=== PATIENT | female | born 1995 | race Caucasian/White ===

== ENCOUNTER 2016-09-06 18:35 | Inpatient (IN) | payer BC ==
[2016-09-06] MEDS ORDERED: Sodium Chloride 0.9% 10 ML Syringe FLUSH PRN (22:59)
[2016-09-06] MEDS ORDERED: Oxytocin/Lactated Ringers 10 UNIT/1,000 ML BAG IV SCH (23:00)
[2016-09-06] MEDS ORDERED: diphenhydrAMINE 50 MG/ML SDV IVPUSH PRN (23:07)
[2016-09-06] MEDS ORDERED: fentaNYL 100 MCG/2 ML SDV EPIDUR PRN (23:07)
[2016-09-06] MEDS ORDERED: ePHEDrine 50 MG/ML SDV IVPUSH PRN (23:07)
[2016-09-06] MEDS ORDERED: Bupivacaine/fentaNYL/NS 100 ML Bag EPIDUR SCH (23:15)
[2016-09-06] MEDS: Lactated Ringers 1,000 ML IV SCH (23:32)
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
[2016-09-07] MEDS: Lactated Ringers 1,000 ML IV SCH (00:16)
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
--- NOTE | 2016-09-07 03:13 | PCM.DEL ---
L & D Note - General Info Date of Service: 09/07/16 - Delivery Note Labor: Spontaneous Delivery Outcome: Livebirth Delivery Method: Spontaneous Vaginal Delivery Delivery Mode: Spontaneous Presentation: Right Occiput Anterior ([place]) Nuchal Cord: Present, Reduced Anesthesia Type: Epidural Amniotic Fluid Description: Meconium Stained Episiotomy Type: None Laceration: 2nd Degree, Perineal Suture type: Vicryl Suture size: 2-0 Placenta: Intact, Spontaneous Cord: 3 Vessels Estimated Blood Loss: 250 Resuscitation Needed: Yes [place]: Suctioned, Stimulated, Warmed, [place] Used, Warmer Used Score 1 min: 9 Score 5 min: 9 Delivery Comments (Free Text/Narrative):: Patient found to be complete and began pushing. With maternal pushing effort head delivered from an REGINA presentation. Nuchal cord present and reduced. With gentle downward traction the shoulders and body delivered. Infant placed on maternal abdomen. Cord clamped and cut. Cord blood obtained. Placenta allowed time to separate and then expelled. Inspection of the perineum showed a 2nd degree laceration repaired with a 2-0 vicryl in the typical fashion. - Patient Data Vitals - most recent: Last Vital Signs Temp 36.7 C 09/07/16 00:09 Pulse 98 09/07/16 00:09 Resp 18 09/07/16 00:09 BP 112/67 09/07/16 00:09 Pulse Ox 99 09/07/16 00:09 Weight - most recent: 64.41 kg Lab Results last 24 hrs: Laboratory Results - last 24 hr 09/06/16 09/06/16 Range/Units 23:10 23:10 WBC 17.11 H (3.98-10.04) K/mm3 RBC 4.24 (3.98-5.22) M/mm3 Hgb 13.2 (11.2-15.7) gm/L Hct 38.6 (34.1-44.9) % MCV 91.0 (79.4-94.8) fl MCH 31.1 (25.6-32.2) pg MCHC 34.2 (32.2-35.5) g/dl RDW Std Deviation 43.6 (36.4-46.3) fL Plt Count 320 (182-369) K/mm3 MPV 11.4 (9.4-12.3) fl Neut % (Auto) 70.7 (34.0-71.1) % Lymph % (Auto) 19.0 L (19.3-51.7) % [place] % (Auto) 8.2 (4.7-12.5) % Eos % (Auto) 0.9 (0.7-5.8) Baso % (Auto) 0.5 (0.1-1.2) % Neut # (Auto) 12.10 H (1.56-6.13) K/mm3 Lymph # (Auto) 3.25 (1.18-3.74) K/mm3 [place] # (Auto) 1.41 H (0.24-0.36) K/mm3 Eos # (Auto) 0.15 (0.04-0.36) K/mm3 Baso # (Auto) 0.08 (0.01-0.08) K/mm3 Manual Slide Review Normal smear Blood Type O POSITIVE Gel Antibody Screen Negative Med Orders - Current: Current Medications Diphenhydramine HCl (Benadryl) 25 mg IVPUSH Q6H PRN PRN Reason: Itching Ephedrine Sulfate (Ephedrine Sulfate) 5 mg IVPUSH ASDIRECTED PRN PRN Reason: HYPOTENTSION Fentanyl (Sublimaze) 100 mcg EPIDUR Q3H PRN PRN Reason: PAIN Last Admin: 09/06/16 23:58 Dose: 100 mcg Fentanyl/Bupivacaine HCl (Fentanyl/Bupivacaine/Ns 2 Mcg-0.125% 100 Ml) 100 ml EPIDUR ASDIRECTED PAT Last Admin: 09/06/16 23:58 Dose: 100 ml Lactated Ringer's (Ringers, Lactated) 1,000 mls @ 100 mls/hr IV ASDIRECTED PAT Last Admin: 09/07/16 00:16 Dose: 999 mls/hr Oxytocin/Lactated Ringer's (Pitocin In Lr 10 Units/1,000 Ml) 10 unit in 1,000 mls @ 500 mls/hr IV .CONTINUOUS PAT Last Admin: 09/07/16 03:01 Dose: 500 mls/hr Sodium Chloride (Saline Flush) 10 ml FLUSH ASDIRECTED PRN PRN Reason: Keep Vein Open - Problem List & Annotations (1) Vaginal delivery SNOMED Code(s): 624939122 Code(s): O80 - ENCOUNTER FOR FULL-TERM UNCOMPLICATED DELIVERY Status: Acute Current Visit: Yes (2) 37 weeks gestation of SNOMED Code(s): 35004243 Code(s): Z3A.37 - 37 WEEKS GESTATION OF Status: Acute Current Visit: Yes (3) Anxiety SNOMED Code(s): 53593202 Code(s): F41.9 - ANXIETY DISORDER, UNSPECIFIED Status: Acute Current Visit: Yes (4) Asthma affecting , antepartum SNOMED Code(s): 079040696 Code(s): O99.519 - DISEASES OF THE RESP SYS COMP , UNSP TRIMESTER; J45.909 - UNSPECIFIED ASTHMA, UNCOMPLICATED Status: Acute Current Visit: Yes (5) Normal labor SNOMED Code(s): 92031604 Code(s): O80 - ENCOUNTER FOR FULL-TERM UNCOMPLICATED DELIVERY; Z37.9 - OUTCOME OF DELIVERY, UNSPECIFIED Status: Acute Priority: High Current Visit: No Annotation/Comment:: Small fetus, but patient is small as well. - Problem List Review Problem List Initiated/Reviewed/Updated: Yes - My Orders Last 24 Hours: My Active Orders 09/06/16 22:59 Activity as Tolerated [RC] PFP Communication Order [RC] ASDIRECTED Notify Provider [RC] PFP Notify Provider [RC] PRN Vital Signs [RC] PER UNIT ROUTINE Sodium Chloride 0.9% [Saline Flush] 10 ml FLUSH ASDIRECTED PRN Electronic Heart Tones Ext w TOCO [WOMSER] Routine Electronic Heart Tones Internal [WOMSER] Per Unit Routine Peripheral IV Insertion Adult [OM.PC] Routine Resuscitation Status Routine 09/06/16 23:00 Patient Status [ADT] Routine Lactated Ringers [Ringers, Lactated] 1,000 ml IV ASDIRECTED Oxytocin/Lactated Ringers [Pitocin in LR 10 Units/1,000 ML] 10 unit in 1,000 ml IV .CONTINUOUS 09/06/16 23:01 Heart Tones [RC] ASDIRECTED Peripheral IV Care [RC] . DIRECTED - Assessment Assessment:: 21 y/o G2 now P2002 PPD#0 from at 37 2/7 wks - Plan Plan:: * Routine cares * Encourage breast feeding * During contacted by [facility] due to positive urine drug screen for THC and benzodiazepines. UDS in clinic negative for those substances, but preliminary positive for amphetamines. Confirmatory negative. Have made Pediatric team aware in case additional testing desired * Home in 1-2 days Anxiety * Continue home Prozac Asthma * Continue home Symbicort
[2016-09-07] MEDS ORDERED: Benzocaine/Menthol 20%-0.5% Spray 56 GM Canister TOP PRN (04:06)
[2016-09-07] MEDS ORDERED: Ibuprofen 600 MG Tab PO PRN (04:06)
[2016-09-07] MEDS ORDERED: Lanolin 100% Cream 7 GM Tube TOP PRN (04:06)
[2016-09-07] MEDS ORDERED: Docusate Sodium 100 MG Cap PO PRN (04:06)
[2016-09-07] MEDS ORDERED: Witch Hazel Medicated Pads 100/Jar TOP PRN (04:06)
[2016-09-07] MEDS ORDERED: Acetaminophen 325 MG Tab PO PRN (04:06)
[2016-09-07] MEDS ORDERED: Budesonide/Formoterol 160-4.5 MCG/Puff 6 GM Inhaler INH SCH (09:00)
[2016-09-07] MEDS: Formoterol/Mometasone 200-5 MCG 8.8 GM Inhaler IH SCH (09:14)
--- NOTE | 2016-09-07 09:17 | PCM48HPAN ---
Post Anesthesia Note - EVALUATION WITHIN 48HRS OF ANESTHETIC Vital Signs in Normal Range: Yes Patient Participated in Evaluation: Yes Respiratory Function Stable: Yes Airway Patent: Yes Cardiovascular Function Stable: Yes Hydration Status Stable: Yes Pain Control Satisfactory: Yes Nausea and Vomiting Control Satisfactory: Yes Mental Status Recovered: Yes - COMMENTS/OBSERVATIONS Free Text/Narrative:: Patient denies any headaches, residual numbness or tingling in her LE, or back pain.
[2016-09-07] MEDS: Levothyroxine 25 MCG Tab PO SCH (11:52)
[2016-09-07] MEDS: FLUoxetine 20 MG Cap PO SCH (11:52)
[2016-09-07] MEDS ORDERED: Bupivacaine 0.25% 10 ML SDV ONE (22:22)
--- NOTE | 2016-09-08 08:18 | PCM.DCSUM1 ---
Discharge Summary - Hospital Course Brief History: Admitted in labor. - Discharge Data Discharge Date: 09/08/16 Discharge Disposition: Home, Self-Care 01 Condition: Good - Patient Instructions Diet: Usual Diet as Tolerated Activity: No Strenuous Activities Driving: May Drive Today Showering/Bathing: May Shower Wound/Incision Care: Keep Operative Site/Wound Site Clean and Dry Notify Provider of: Fever, Increased Pain, Swelling and Redness, Drainage, Nausea and/or Vomiting - Discharge Plan Home Medications: Home Meds Vit No.130/Iron/FA [ Tablet] 1 each PO DAILY 08/30/13 [History] Budesonide/Formoterol Fumarate [Symbicort 160-4.5 Mcg Inhaler] 2 puff IH DAILY 09/07/16 [History] FLUoxetine [PROzac] 60 mg PO DAILY 09/07/16 [History] Levalbuterol Tartrate [Xopenex HFA] 3 puff PO ASDIRECTED PRN 09/07/16 [History] Levothyroxine Sodium [Levothyroxine Sodium] 1 tab PO DAILY 09/07/16 [History] Montelukast [Singulair] 10 mg PO DAILY 09/07/16 [History] Omeprazole [Omeprazole] 1 tab PO DAILY 09/07/16 [History] Ondansetron [Zofran] 4 mg PO DAILY 09/07/16 [History] Referrals: Candi Sanches MD [Primary Care Provider] - (Verón[place] 6 weeks) - Discharge Summary/Plan Comment DC Time >30 min.: No - General Info Date of Service: 09/08/16 Functional Status: Reports: Pain Controlled - Review of Systems General: Reports: No Symptoms HEENT: Reports: No Symptoms Pulmonary: Reports: No Symptoms Cardiovascular: Reports: No Symptoms Gastrointestinal: Reports: No Symptoms Genitourinary: Reports: No Symptoms Musculoskeletal: Reports: No Symptoms Skin: Reports: No Symptoms Neurological: Reports: No Symptoms Psychiatric: Reports: No Symptoms - Patient Data Vitals - Most Recent: Last Vital Signs Temp 37.0 C 09/08/16 04:00 Pulse 53 L 09/08/16 04:00 Resp 16 09/08/16 04:00 BP 122/73 09/08/16 04:00 Pulse Ox 100 09/07/16 20:21 Weight - Most Recent: 64.41 kg I&O - Last 24 hours: Intake & Output 09/07/16 09/08/16 09/08/16 22:59 06:59 14:59 Intake Total 0 Balance 0 Med Orders - Current: Current Medications Acetaminophen (Tylenol) 650 mg PO Q4H PRN PRN Reason: mild pain or fever Benzocaine/Menthol (Dermoplast Pain Relief [place]) 0 gm TOP ASDIRECTED PRN PRN Reason: Perineal Comfort Measure Last Admin: 09/07/16 04:44 Dose: 1 can Docusate Sodium (Colace) 100 mg PO BID PRN PRN Reason: Constipation Emollient Ointment (Lansinoh Hpa) 0 gm TOP ASDIRECTED PRN PRN Reason: Sore Nipples Fluoxetine HCl (Prozac) 60 mg PO DAILY [facility] Last Admin: 09/07/16 11:52 Dose: 60 mg Ibuprofen (Motrin) 600 mg PO Q6H PRN PRN Reason: Mild pain or fever Levothyroxine Sodium (Levothyroxine) 25 mcg PO DAILY [facility] Last Admin: 09/07/16 11:52 Dose: 25 mcg Mometasone Furoate/Formoterol Fumar (Dulera 200-5 Mcg) 0 puff IH DAILY [facility] Last Admin: 09/07/16 09:14 Dose: 2 puff Witch Rosa (Tucks) 1 pad TOP ASDIRECTED PRN PRN Reason: Hemorrhoid pain Last Admin: 09/07/16 04:45 Dose: 1 tub Discontinued Medications Budesonide/Formoterol Fumarate (Symbicort 160-4.5 Mcg) 0 gm INH DAILY [facility] Last Admin: 09/07/16 14:37 Dose: Not Given Diphenhydramine HCl (Benadryl) 25 mg IVPUSH Q6H PRN PRN Reason: Itching Ephedrine Sulfate (Ephedrine Sulfate) 5 mg IVPUSH ASDIRECTED PRN PRN Reason: HYPOTENTSION Fentanyl (Sublimaze) 100 mcg EPIDUR Q3H PRN PRN Reason: PAIN Last Admin: 09/06/16 23:58 Dose: 100 mcg Fentanyl/Bupivacaine HCl (Fentanyl/Bupivacaine/Ns 2 Mcg-0.125% 100 Ml) 100 ml EPIDUR ASDIRECTED PAT Last Admin: 09/06/16 23:58 Dose: 100 ml Lactated Ringer's (Ringers, Lactated) 1,000 mls @ 100 mls/hr IV ASDIRECTED PAT Last Admin: 09/07/16 00:16 Dose: 999 mls/hr Oxytocin/Lactated Ringer's (Pitocin In Lr 10 Units/1,000 Ml) 10 unit in 1,000 mls @ 500 mls/hr IV .CONTINUOUS PAT Last Admin: 09/07/16 03:01 Dose: 500 mls/hr Sodium Chloride (Saline Flush) 10 ml FLUSH ASDIRECTED PRN PRN Reason: Keep Vein Open - Exam General: Reports: alert, oriented HEENT: Reports: Pupils equal, Pupils reactive, EOMI, Mucous membr. moist/pink Neck: Reports: supple Lungs: Reports: Clear to Auscultation, Normal Respiratory Effort Cardiovascular: Reports: Regular Rate, Regular Rhythm GI/Abdominal Exam: Normal Bowel Sounds, Soft, Non-Tender, No Organomegaly, No Distention, No Abnormal Bruit, No Mass, Pelvis Stable (Female) Exam: Normal External Exam, Normal Speculum Exam, Normal Bimanual Exam Back Exam: Reports: Normal Inspection, Full Range of Motion Extremities: Normal Inspection, Normal Range of Motion, Non-Tender, No Pedal Edema, Normal Capillary Refill Skin: Reports: warm, dry, intact Wound/Incisions: Reports: healing well Neurological: Reports: no new focal deficit Psy/Mental Status: Reports: alert, normal affect, normal mood *Q Meaningful Use (DIS) - VTE *Q VTE Criteria *Q: - Stroke *Q Stroke Criteria *Q: - AMI *Q AMI Criteria *Q:
[2016-09-08] MEDS: Formoterol/Mometasone 200-5 MCG 8.8 GM Inhaler IH SCH (08:42)
[2016-09-08] MEDS: Levothyroxine 25 MCG Tab PO SCH (09:47)
[2016-09-08] MEDS: FLUoxetine 20 MG Cap PO SCH (09:48)
[2016-09-08 14:09] VITALS: BP 116/91
== END 2016-09-08 18:50 | disposition home or self-care (01) | DRG 560 ==
LOC: JD.OBCHECK 18:35 → JD.OB 18:38 → JD.OBCHECK 23:00 → OBSVTOIN 09-07 02:56 → JD.OB 09-07 02:56
PROVIDERS: ADMIT Obstetrics & Gynecology; ATTEND Obstetrics & Gynecology
PROC: 10E0XZZ Delivery of Products of Conception, External Approach (ICD-10-PCS; principal; 2016-09-07)
PROC: 0KQM0ZZ Repair Perineum Muscle, Open Approach (ICD-10-PCS; 2016-09-07)
PROC: 10907ZC Drainage of Amniotic Fluid, Therapeutic from Products of Conception, Via Natural or Artificial Opening (ICD-10-PCS; 2016-09-07)
PROC: 00HU33Z Insertion of Infusion Device into Spinal Canal, Percutaneous Approach (ICD-10-PCS; 2016-09-07)
PROC: 3E0R3CZ (ICD-10-PCS; 2016-09-07)
DX: O99.519 Diseases of the respiratory system complicating pregnancy, unspecified trimester (principal); O99.344 Other mental disorders complicating childbirth; F41.9 Anxiety disorder, unspecified; F32.9 Major depressive disorder, single episode, unspecified; O99.334 Smoking (tobacco) complicating childbirth; O99.284 Endocrine, nutritional and metabolic diseases complicating childbirth; E03.9 Hypothyroidism, unspecified; Z3A.37 37 weeks gestation of pregnancy; Z37.0 Single live birth; O70.1 Second degree perineal laceration during delivery; O69.81X0 Labor and delivery complicated by cord around neck, without compression, not applicable or unspecified; O77.0 Labor and delivery complicated by meconium in amniotic fluid; Z88.8 Allergy status to other drugs, medicaments and biological substances; Z79.899 Other long term (current) drug therapy
CPT/HCPCS: 01967; 36415; 85025; 86850; 86900; 86901; 94640; 94664; A9270-GY; J2590; J3010; J7120

== ENCOUNTER 2021-01-03 07:13 | Inpatient (IN) | payer BC, MEDICAID ==
[2021-01-03] MEDS ORDERED: Sodium Chloride 0.9% 10 ML Syringe FLUSH PRN (07:19)
[2021-01-03] MEDS ORDERED: Nalbuphine 10 MG/1 ML Vial IVPUSH PRN (07:19)
[2021-01-03] MEDS ORDERED: Ondansetron 4 MG/2 ML SDV IVPUSH PRN (07:19)
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
[2021-01-03] MEDS ORDERED: Oxytocin/Lactated Ringers 10 UNIT/1,000 ML BAG IV SCH ×2 (07:30)
[2021-01-03] MEDS ORDERED: Lactated Ringers 1,000 ML IV SCH (07:30)
[2021-01-03] MEDS ORDERED: Ampicillin 2 GM in Sodium Chloride 0.9% 100 ML IV ONE (08:00)
[2021-01-03] MEDS: Lactated Ringers 1,000 ML IV SCH ×2 (08:00→12:15)
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
[2021-01-03] MEDS ORDERED: fentaNYL 100 MCG/2 ML SDV EPIDUR PRN (11:26)
[2021-01-03] MEDS ORDERED: Bupivacaine/fentaNYL/NS 100 ML Bag EPIDUR PRN (11:26)
[2021-01-03] MEDS ORDERED: ePHEDrine 50 MG/ML SDV IVPUSH PRN (11:26)
[2021-01-03] MEDS ORDERED: diphenhydrAMINE 50 MG/ML SDV IVPUSH PRN (11:26)
[2021-01-03] MEDS ORDERED: Ampicillin 1 GM in Sodium Chloride 0.9% 100 ML IV SCH (12:00)
--- NOTE | 2021-01-03 15:19 | PCM.DEL ---
L & D Note - General Info Date of Service: 01/03/21 - Delivery Note Labor: Induced by ARM, Induced by Oxytocin Delivery Outcome: Livebirth Infant Delivery Method: Spontaneous Vaginal Delivery-Single Infant Delivery Mode: Spontaneous Presentation: Right Occiput Anterior ([place]) Nuchal Cord: Present Anesthesia Type: Epidural Amniotic Fluid Description: Clear Episiotomy Type: None Laceration: None Placenta: Intact, Spontaneous Cord: 3 Vessels Estimated Blood Loss: 100 Resuscitation Needed: Yes [place]: Bulb Syringe, Stimulated, Warmed, [place] Used, Warmer Used Delivery Comments (Free Text/Narrative):: Patient found to be complete with this there was a terminal nagi into the 70's. Along with this moderate amount of blood/clot noted. Maternal pushing effort with head delivering from [place]GIN[place] presentation. Nuchal cord present and reduced. With gentle downward traction shoulders and body delivered. placed on maternal abdomen. Cord clamped and cut. Cord blood obtained. Placenta delivered quickly thereafter. Question whether small abruption occurred which caused tracing findings. - General Info Date of Service: 01/03/21 - Patient Data Vitals - Most Recent: Last Vital Signs Temp 36.9 C 01/03/21 07:38 Pulse 105 H 01/03/21 07:38 Resp 16 01/03/21 07:38 BP 102/81 01/03/21 07:38 Pulse Ox 97 01/03/21 07:38 Weight - Most Recent: 64.864 kg I&O - Last 24 Hours: Intake & Output 01/03/21 01/03/21 01/03/21 06:59 14:59 22:59 Intake Total 120 Balance 120 - Exam Urinary Catheter Total Time: 0Days 0Hours - Problem List & Annotations (1) 39 weeks gestation of SNOMED Code(s): 72980776 Code(s): Z3A.39 - 39 WEEKS GESTATION OF Status: Acute Current Visit: Yes (2) GBS (group B Streptococcus carrier), +RV culture, currently SNOMED Code(s): 1947386305518, 191839246, 1051221286710 Code(s): O99.820 - STREPTOCOCCUS B CARRIER STATE COMPLICATING Status: Acute Current Visit: Yes (3) COVID-19 affecting in third trimester SNOMED Code(s): 756907577, 266112835 Code(s): O98.513 - OTHER VIRAL DISEASES COMPLICATING , THIRD TRIMESTER; U07.1 - COVID-19 Status: Acute Current Visit: Yes (4) Vaginal delivery SNOMED Code(s): 846126649 Code(s): O80 - ENCOUNTER FOR FULL-TERM UNCOMPLICATED DELIVERY Status: Acute Current Visit: No - Problem List Review Problem List Initiated/Reviewed/Updated: Yes - My Orders Last 24 Hours: My Active Orders 01/03/21 Breakfast Regular Diet [DIET] 01/03/21 07:19 Patient Status [ADT] Routine Activity as Tolerated [RC] PFP Communication Order [RC] ASDIRECTED Communication Order [RC] ASDIRECTED Communication Order [RC] ASDIRECTED Notify Provider [RC] ASDIRECTED Notify Provider [RC] PRN Vital Signs [RC] ASDIRECTED Nalbuphine [Nubain] 10 mg IVPUSH Q2H PRN Ondansetron [Zofran] 4 mg IVPUSH Q4H PRN Sodium Chloride 0.9% [Saline Flush] 10 ml FLUSH ASDIRECTED PRN Electronic Heart Tones Ext w TOCO [WOMSER] Routine Electronic Heart Tones Internal [WOMSER] Per Unit Routine Peripheral IV Insertion Adult [OM.PC] Routine Peripheral IV Insertion Adult [OM.PC] Routine Resuscitation Status Routine 01/03/21 07:20 Peripheral IV Care [RC] . DIRECTED 01/03/21 07:21 Up ad Monika [RC] ASDIRECTED 01/03/21 07:30 Lactated Ringers [Ringers, Lactated] 1,000 ml IV ASDIRECTED Oxytocin/Lactated Ringers [Pitocin in LR 10 Units/1,000 ML] 10 unit in 1,000 ml IV .CONTINUOUS Oxytocin/Lactated Ringers [Pitocin in LR 10 Units/1,000 ML] 10 unit in 1,000 ml IV TITRATE 01/03/21 07:47 RAPID PLASMA REAGIN,RPR [CHEM] Routine 01/03/21 12:00 Ampicillin 1 gm Sodium Chloride 0.9% [Normal Saline AdvBag] 100 ml IV Q4H - Assessment Assessment:: PPD#0 - Plan Plan:: * Routine cares * Breast feeding * Discharge home in 1-2 days
[2021-01-03] MEDS ORDERED: Bupivacaine 0.25% 10 ML SDV ONE (15:30)
[2021-01-03] MEDS ORDERED: Benzocaine/Menthol 20%-0.5% Spray 78 GM Cannister TOP PRN (15:47)
[2021-01-03] MEDS ORDERED: Docusate Sodium 100 MG Cap PO PRN (15:47)
[2021-01-03] MEDS ORDERED: Witch Hazel Medicated Pads 40/Jar TOP PRN (15:47)
[2021-01-03] MEDS ORDERED: Acetaminophen 325 MG Tab PO PRN (15:47)
[2021-01-04] MEDS: Ibuprofen 600 MG Tab PO PRN ×2 (00:31→09:35)
--- NOTE | 2021-01-04 07:15 | PCM.DCSUM1 ---
Discharge Summary - Discharge Data Discharge Date: 01/04/21 Discharge Disposition: Home, Self-Care 01 Condition: Good - Discharge Diagnosis/Problem(s) (1) 39 weeks gestation of SNOMED Code(s): 68061017 ICD Code: Z3A.39 - 39 WEEKS GESTATION OF Status: Acute Current Visit: Yes (2) GBS (group B Streptococcus carrier), +RV culture, currently SNOMED Code(s): 5197390206160, 551140823, 5428516331051 ICD Code: O99.820 - STREPTOCOCCUS B CARRIER STATE COMPLICATING Status: Acute Current Visit: Yes (3) COVID-19 affecting in third trimester SNOMED Code(s): 995273678, 902869846 ICD Code: O98.513 - OTHER VIRAL DISEASES COMPLICATING , THIRD TRIMESTER; U07.1 - COVID-19 Status: Acute Current Visit: Yes (4) Vaginal delivery SNOMED Code(s): 050543382 ICD Code: O80 - ENCOUNTER FOR FULL-TERM UNCOMPLICATED DELIVERY Status: Acute Current Visit: No - Patient Summary/Data Complications: None Consults: None Recommended Follow-up Testing/Procedures: Follow up in 3 weeks for check Hospital Course: 25 y/o at 39 2/7 wks who presented for elective IOL. Done with pitocin and AROM. Progressed well to complete dilation. Underwent . See delivery note. did well. Was discharged home on PPD#1 - Patient Instructions Diet: Regular Diet as Tolerated Activity: As Tolerated Activity, Other: Pelvic rest for 6 weeks Driving: May Drive Today Showering/Bathing: May Shower Showering/Bathing, Other: May Bathe Notify Provider of: Fever, Increased Pain, Swelling and Redness, Drainage, Nausea and/or Vomiting - Discharge Plan *PRESCRIPTION DRUG MONITORING PROGRAM REVIEWED*: No *COPY OF PRESCRIPTION DRUG MONITORING REPORT IN PATIENT [facility]: No Home Medications: Home Meds Vit No.130/Iron/Folic [ Tablet] 1 each PO DAILY 08/30/13 [History] Montelukast [Singulair] 10 mg PO DAILY 09/07/16 [History] Omeprazole 1 tab PO DAILY 09/07/16 [History] Albuterol Sulfate [Albuterol Sulfate Hfa] 2 puff INH ASDIRECTED PRN 01/03/21 [History] Docusate Sodium [Colace] 100 mg PO BID PRN cap 01/03/21 [Rx] Ibuprofen [Motrin] 600 mg PO Q6H PRN tablet 01/03/21 [Rx] Patient Handouts: Steps to Quit Smoking - Discharge Summary/Plan Comment DC Time >30 min.: No Total # of Minutes for Discharge Time: 15 - Patient Data Vitals - Most Recent: Last Vital Signs Temp 37.2 C 01/04/21 04:02 Pulse 64 01/04/21 04:02 Resp 14 01/04/21 04:02 BP 110/85 01/04/21 04:02 Pulse Ox 100 01/04/21 04:02 Weight - Most Recent: 64.864 kg I&O - Last 24 hours: Intake & Output 01/03/21 01/04/21 01/04/21 22:59 06:59 14:59 Intake Total 3000 Output Total 200 Balance 2800 Lab Results - Last 24 hrs: Laboratory Results - last 24 hr 01/03/21 01/03/21 Range/Units 07:47 07:47 WBC 11.17 H (3.98-10.04) K/mm3 RBC 3.80 L (3.98-5.22) M/mm3 Hgb 11.6 D (11.2-15.7) gm/dl Hct 35.1 (34.1-44.9) % MCV 92.4 (79.4-94.8) fl MCH 30.5 (25.6-32.2) pg MCHC 33.0 (32.2-35.5) g/dl RDW Std Deviation 43.8 (36.4-46.3) fL Plt Count 302 (182-369) K/mm3 MPV 11.4 (9.4-12.3) fl Blood Type O POSITIVE Gel Antibody Screen Negative Med Orders - Current: Current Medications Acetaminophen (Acetaminophen 325 Mg Tab) 650 mg PO Q4H PRN PRN Reason: mild pain or fever Benzocaine/Menthol (Benzocaine/Menthol 20%-0.5% [place] 78 Gm Cannister) 0 gm TOP ASDIRECTED PRN PRN Reason: Perineal Comfort Measure Last Admin: 01/03/21 20:03 Dose: 1 canister Documented by: Docusate Sodium (Docusate Sodium 100 Mg Cap) 100 mg PO BID PRN PRN Reason: Constipation Ibuprofen (Ibuprofen 600 Mg Tab) 600 mg PO Q6H PRN PRN Reason: Mild pain or fever Last Admin: 01/04/21 00:31 Dose: 600 mg Documented by: Juan Jose Lee (Juan Jose Lee Medicated Pads 40/Jar) 1 pad TOP ASDIRECTED PRN PRN Reason: Perineal Comfort Measure Last Admin: 01/03/21 20:02 Dose: 1 tub Documented by: Discontinued Medications Diphenhydramine HCl (Diphenhydramine 50 Mg/Ml Sdv) 25 mg IVPUSH Q6H PRN PRN Reason: pruritis Ephedrine Sulfate (Ephedrine 50 Mg/Ml Sdv) 5 mg IVPUSH ASDIRECTED PRN PRN Reason: Hypotension Fentanyl (Fentanyl 100 Mcg/2 Ml Sdv) 100 mcg EPIDUR Q3H PRN PRN Reason: Pain Last Admin: 01/03/21 12:16 Dose: 100 mcg Documented by: Fentanyl/Bupivacaine HCl (Bupivacaine/Fentanyl/Ns 100 Ml Bag) 100 ml EPIDUR ASDIRECTED PRN PRN Reason: Pain Last Admin: 01/03/21 12:16 Dose: 100 ml Documented by: Lactated Ringer's (Ringers, Lactated) 1,000 mls @ 100 mls/hr IV ASDIRECTED PAT Last Admin: 01/03/21 12:15 Dose: 100 mls/hr Documented by: Oxytocin/Lactated Ringer's (Pitocin In Lr 10 Units/1,000 Ml) 10 unit in 1,000 mls @ 12 mls/hr IV TITRATE PAT; Protocol Last Titration: 01/03/21 13:40 Dose: 10 munits/min, 60 mls/hr Documented by: Oxytocin/Lactated Ringer's (Pitocin In Lr 10 Units/1,000 Ml) 10 unit in 1,000 mls @ 500 mls/hr IV .CONTINUOUS PAT Ampicillin Sodium 2 gm/ Sodium (Chloride) 100 mls @ 200 mls/hr IV ONETIME ONE Stop: 01/03/21 08:29 Last Admin: 01/03/21 08:01 Dose: 200 mls/hr Documented by: Ampicillin Sodium 1 gm/ Sodium (Chloride) 100 mls @ 200 mls/hr IV Q4H PAT Last Admin: 01/03/21 12:14 Dose: 200 mls/hr Documented by: Nalbuphine HCl (Nalbuphine 10 Mg/1 Ml Vial) 10 mg IVPUSH Q2H PRN PRN Reason: Pain Ondansetron HCl (Ondansetron 4 Mg/2 Ml Sdv) 4 mg IVPUSH Q4H PRN PRN Reason: Nausea/Vomiting Sodium Chloride (Sodium Chloride 0.9% 10 Ml Syringe) 10 ml FLUSH ASDIRECTED PRN PRN Reason: Keep Vein Open
--- NOTE | 2021-01-04 07:15 | PCM.PNPP ---
- General Info Date of Service: 01/04/21 Functional Status: Reports: Pain Controlled, Tolerating Diet, Ambulating, Urinating - Review of Systems General: Reports: No Symptoms Pulmonary: Reports: No Symptoms Cardiovascular: Reports: No Symptoms Gastrointestinal: Reports: No Symptoms Genitourinary: Reports: No Symptoms Musculoskeletal: Reports: No Symptoms Neurological: Reports: No Symptoms - General Info Date of Service: 01/04/21 - Patient Data Vital Signs - Most Recent: Last Vital Signs Temp 37.2 C 01/04/21 04:02 Pulse 64 01/04/21 04:02 Resp 14 01/04/21 04:02 BP 110/85 01/04/21 04:02 Pulse Ox 100 01/04/21 04:02 Weight - Most Recent: 64.864 kg I&O - Last 24 Hours: Intake & Output 01/03/21 01/04/21 01/04/21 22:59 06:59 14:59 Intake Total 3000 Output Total 200 Balance 2800 Lab Results - Last 24 Hours: Laboratory Results - last 24 hr 01/03/21 01/03/21 Range/Units 07:47 07:47 WBC 11.17 H (3.98-10.04) K/mm3 RBC 3.80 L (3.98-5.22) M/mm3 Hgb 11.6 D (11.2-15.7) gm/dl Hct 35.1 (34.1-44.9) % MCV 92.4 (79.4-94.8) fl MCH 30.5 (25.6-32.2) pg MCHC 33.0 (32.2-35.5) g/dl RDW Std Deviation 43.8 (36.4-46.3) fL Plt Count 302 (182-369) K/mm3 MPV 11.4 (9.4-12.3) fl Blood Type O POSITIVE Gel Antibody Screen Negative Med Orders - Current: Current Medications Acetaminophen (Acetaminophen 325 Mg Tab) 650 mg PO Q4H PRN PRN Reason: mild pain or fever Benzocaine/Menthol (Benzocaine/Menthol 20%-0.5% Sarita 78 Gm Cannister) 0 gm TOP ASDIRECTED PRN PRN Reason: Perineal Comfort Measure Last Admin: 01/03/21 20:03 Dose: 1 canister Documented by: Docusate Sodium (Docusate Sodium 100 Mg Cap) 100 mg PO BID PRN PRN Reason: Constipation Ibuprofen (Ibuprofen 600 Mg Tab) 600 mg PO Q6H PRN PRN Reason: Mild pain or fever Last Admin: 01/04/21 00:31 Dose: 600 mg Documented by: Juan Jose Lee (Juan Jose Lee Medicated Pads 40/Jar) 1 pad TOP ASDIRECTED PRN PRN Reason: Perineal Comfort Measure Last Admin: 01/03/21 20:02 Dose: 1 tub Documented by: Discontinued Medications Diphenhydramine HCl (Diphenhydramine 50 Mg/Ml Sdv) 25 mg IVPUSH Q6H PRN PRN Reason: pruritis Ephedrine Sulfate (Ephedrine 50 Mg/Ml Sdv) 5 mg IVPUSH ASDIRECTED PRN PRN Reason: Hypotension Fentanyl (Fentanyl 100 Mcg/2 Ml Sdv) 100 mcg EPIDUR Q3H PRN PRN Reason: Pain Last Admin: 01/03/21 12:16 Dose: 100 mcg Documented by: Fentanyl/Bupivacaine HCl (Bupivacaine/Fentanyl/Ns 100 Ml Bag) 100 ml EPIDUR ASDIRECTED PRN PRN Reason: Pain Last Admin: 01/03/21 12:16 Dose: 100 ml Documented by: Lactated Ringer's (Ringers, Lactated) 1,000 mls @ 100 mls/hr IV ASDIRECTED PAT Last Admin: 01/03/21 12:15 Dose: 100 mls/hr Documented by: Oxytocin/Lactated Ringer's (Pitocin In Lr 10 Units/1,000 Ml) 10 unit in 1,000 mls @ 12 mls/hr IV TITRATE PAT; Protocol Last Titration: 01/03/21 13:40 Dose: 10 munits/min, 60 mls/hr Documented by: Oxytocin/Lactated Ringer's (Pitocin In Lr 10 Units/1,000 Ml) 10 unit in 1,000 mls @ 500 mls/hr IV .CONTINUOUS PAT Ampicillin Sodium 2 gm/ Sodium (Chloride) 100 mls @ 200 mls/hr IV ONETIME ONE Stop: 01/03/21 08:29 Last Admin: 01/03/21 08:01 Dose: 200 mls/hr Documented by: Ampicillin Sodium 1 gm/ Sodium (Chloride) 100 mls @ 200 mls/hr IV Q4H PAT Last Admin: 01/03/21 12:14 Dose: 200 mls/hr Documented by: Nalbuphine HCl (Nalbuphine 10 Mg/1 Ml Vial) 10 mg IVPUSH Q2H PRN PRN Reason: Pain Ondansetron HCl (Ondansetron 4 Mg/2 Ml Sdv) 4 mg IVPUSH Q4H PRN PRN Reason: Nausea/Vomiting Sodium Chloride (Sodium Chloride 0.9% 10 Ml Syringe) 10 ml FLUSH ASDIRECTED PRN PRN Reason: Keep Vein Open - Infant Interaction Infant Disposition, : [place] in Room with Family Interaction: Holding Infant Feeding: Bottle Fed Infant Support Person: Significant Other - Recovery Exam Fundal Tone: Firm Fundal Level: 1 Fingerbreadths Below Umbilicus Fundal Placement: Midline Lochia Amount: Small Lochia Color: Rubra/Red Perineum Description: Other (see below) Other Perinuem Description: 1st degree laceration with repair Episiotomy/Laceration: Approximated Bladder Status: Voiding Urinary Elimination: Voided - Exam General: Alert, Oriented, Cooperative GI/Abdominal Exam: Soft, Non-Tender - Problem List & Annotations (1) 39 weeks gestation of SNOMED Code(s): 82113644 Code(s): Z3A.39 - 39 WEEKS GESTATION OF Status: Acute Current Visit: Yes (2) GBS (group B Streptococcus carrier), +RV culture, currently SNOMED Code(s): 3876132129314, 809707986, 2187111514781 Code(s): O99.820 - STREPTOCOCCUS B CARRIER STATE COMPLICATING Status: Acute Current Visit: Yes (3) COVID-19 affecting in third trimester SNOMED Code(s): 173424541, 373590684 Code(s): O98.513 - OTHER VIRAL DISEASES COMPLICATING , THIRD TRIMESTER; U07.1 - COVID-19 Status: Acute Current Visit: Yes (4) Vaginal delivery SNOMED Code(s): 934382063 Code(s): O80 - ENCOUNTER FOR FULL-TERM UNCOMPLICATED DELIVERY Status: Acute Current Visit: No - Problem List Review Problem List Initiated/Reviewed/Updated: Yes - My Orders Last 24 Hours: My Active Orders 01/03/21 07:19 Resuscitation Status Routine 01/03/21 07:47 RAPID PLASMA REAGIN,RPR [CHEM] Routine 01/03/21 Lunch Regular Diet [DIET] 01/03/21 15:47 Acetaminophen [TylenoL] 650 mg PO Q4H PRN Benzocaine/Menthol [Dermoplast Pain Relief 20%-0.5% Sarita] See Dose Instructions TOP ASDIRECTED PRN Docusate Sodium [Colace] 100 mg PO BID PRN Ibuprofen [Motrin] 600 mg PO Q6H PRN witch Divina [Tucks] 1 pad TOP ASDIRECTED PRN Heat Therapy [OM.PC] PRN 01/03/21 15:47 Activity as Tolerated [RC] PER UNIT ROUTINE Vital Signs [RC] 03,,,21 Assess Lochia [WOMSER] Per Unit Routine Assess Uterine Involution [WOMSER] Per Unit Routine Breast Pump [WOMSER] Per Unit Routine Ice Therapy [OM.PC] Per Unit Routine Perineal Care [OM.PC] Per Unit Routine Peripheral IV Discontinue [OM.PC] Routine Sitz Bath [OM.PC] Per Unit Routine 01/04/21 07:15 Ready for Discharge [RC] PER UNIT ROUTINE 01/04/21 15:47 Heat Therapy [OM.PC] PRN - Assessment Assessment:: PPD#1 - Plan Plan:: * Routine cares * Is bottle feeding * Discharge home today pending Pediatric team assessment
--- NOTE | 2021-01-04 08:00 | PCM48HPAN ---
Post Anesthesia Note - EVALUATION WITHIN 48HRS OF ANESTHETIC Vital Signs in Normal Range: Yes Patient Participated in Evaluation: Yes Respiratory Function Stable: Yes Airway Patent: Yes Cardiovascular Function Stable: Yes Hydration Status Stable: Yes Pain Control Satisfactory: Yes Nausea and Vomiting Control Satisfactory: Yes Mental Status Recovered: Yes Vital Signs: Last Vital Signs Temp 37.2 C 01/04/21 04:02 Pulse 64 01/04/21 04:02 Resp 14 01/04/21 04:02 BP 110/85 01/04/21 04:02 Pulse Ox 100 01/04/21 04:02
[2021-01-04 10:05] VITALS: BP 102/75; PULSE 79
== END 2021-01-04 17:05 | disposition home or self-care (01) | DRG 560 ==
LOC: JD.OB 07:13 → OBSVTOIN 15:03 → JD.OB 15:04
PROVIDERS: ADMIT Obstetrics & Gynecology; ATTEND Obstetrics & Gynecology
PROC: 10E0XZZ Delivery of Products of Conception, External Approach (ICD-10-PCS; principal; 2021-01-03)
PROC: 10907ZC Drainage of Amniotic Fluid, Therapeutic from Products of Conception, Via Natural or Artificial Opening (ICD-10-PCS; 2021-01-03)
PROC: 3E033VJ Introduction of Other Hormone into Peripheral Vein, Percutaneous Approach (ICD-10-PCS; 2021-01-03)
PROC: 3E0R3BZ Introduction of Anesthetic Agent into Spinal Canal, Percutaneous Approach (ICD-10-PCS; 2021-01-03)
PROC: 00HU33Z Insertion of Infusion Device into Spinal Canal, Percutaneous Approach (ICD-10-PCS; 2021-01-03)
DX: O99.824 Streptococcus B carrier state complicating childbirth (principal); Z37.0 Single live birth; O99.52 Diseases of the respiratory system complicating childbirth; J45.909 Unspecified asthma, uncomplicated; O99.62 Diseases of the digestive system complicating childbirth; K21.9 Gastro-esophageal reflux disease without esophagitis; O99.334 Smoking (tobacco) complicating childbirth; F17.200 Nicotine dependence, unspecified, uncomplicated; O99.344 Other mental disorders complicating childbirth; F41.9 Anxiety disorder, unspecified; F31.9 Bipolar disorder, unspecified; O99.284 Endocrine, nutritional and metabolic diseases complicating childbirth; E03.9 Hypothyroidism, unspecified; Z3A.39 39 weeks gestation of pregnancy; Z79.899 Other long term (current) drug therapy; Z86.16 Personal history of COVID-19
CPT/HCPCS: 01967; 36415; 51702; 59025; 59409; 85027; 86592; 86850; 86900; 86901; A9270-GY; J0290; J2590; J3010; J3490; J7120